=== PATIENT | male | born 1995 | race Caucasian/White ===

== ENCOUNTER 2016-03-10 01:42 | Emergency (ER) | payer MEDICAID, OTHER ==
[~2016-03-10] VITALS: Ht 172.7 cm; Wt 85.9 kg
[2016-03-10 01:46] VITALS: BP 122/68; PULSE 89; RESP 16; O2SAT 97
[2016-03-10] MEDS ORDERED: HYDROcodone-APAP 5-325 mg Tablet PO ONE (02:10)
--- NOTE | 2016-03-10 02:10 | ED.REPORT ---
HPI-Dental/Mouth Prob Date of Service Mar 10, 2016 ED Provider: Dylon Hickman MD 20-year-old male presents to the ED via POV secondary to a cracked tooth resulting in significant dental pain. Patient does not recall a specific injury to the tooth. He states he has obtained an appointment with his dentist in 2 weeks though over the last 2 days he has noticed an increase in pain to the affected tooth. The pain increases with hot or cold beverages, he has not taken any medications for this pain with the exception of aspirin. Patient reports no fevers, headache, nausea/vomiting, neck pain, buccal mucosal swelling or chest pain or palpitations. Nursing Notes Stated Complaint: TOOTH PAIN Chief Complaint: Dental Nursing Notes Reviewed: Yes Allergies: Coded Allergies: No Known Allergies (Verified Allergy, Unknown, 04/30/15) Scheduled Amoxicillin (Amoxicillin) 500 Mg Capsule 500 MG PO TID Amoxicillin/Clav K 500-125 mg (Augmentin 500-125 mg) 1 Each Tablet 1 TABLET PO TID Scheduled PRN Ibuprofen (Ibuprofen) 800 Mg Tablet 800 MG PO TID PRN PRN For Pain Tramadol (Tramadol) 50 Mg Tablet 50 MG PO Q6H PRN PRN For Pain General Time Seen by MD: 01:59 Chief Complaint Tongue pain, Tooth chipped Hx Obtained From: Patient Arrived By: Walk-in Onset Occurred: 2 days ago Symptom Duration: Since onset Location: : Buccal mucosa right: Tooth upper R molar Radiation: : Does not radiate Past Medical History Past Medical History Previous STD, gonorrhea 10/22 Past Surgical History None Smoking History Light Tobacco Smoker Social History Drug Use: Meth Ambulatory Status Independent Review of Systems Basic Review of Systems Cardiovascular: No chest pain Hematologic: No bleeding Allergy / Immune: No allergy Neurologic: NL mental status Ears / Nose / Throat: Reports: Mouth pain, Toothache, Denies: Ear drainage bilateral, Ear ringing bilateral, Earache bilateral, Hearing loss bilateral, Nasal congestion, Nose bleeding, Sinus problem, Sore throat, Throat pain, Throat swelling, Tongue pain, Tongue swelling, Voice change Respiratory: Denies: Shortness of breath, Wheezing GI: Denies: Abdominal pain, Nausea, Vomiting Physical Exam General: Moderate distress, well-developed, well-nourished, appropriately interactive HEENT: Normocephalic, atraumatic. External ears without defect. Pupils equal, round, and reactive to light and accommodation. Anicteric sclerae, moist conjunctivae, and no lid lag. Oropharynx free of erythema and cobble stoning with moist mucosa. Tooth #2 right upper molar missing the distal buccal crown. Some erythema and swelling to area. Neck: Supple with full range of motion. Cardiovascular: Regular rate and rhythm with no murmurs, rubs, or gallops appreciated Pulmonary: Clear to auscultation bilaterally with no crackles, wheezes, or rhonchi. Normal respiratory effort with no use of accessory muscles. Abdomen: Soft, nontender, nondistended. Neurological: Cranial nerves grossly intact. Normal muscle strength, tone, and bulk. Reflexes, coordination, and sensory function within normal limits. No known gait impairment. Psychiatric: Normal mood and affect. Alert and oriented to person, place, and time. Initial Vital Signs Vital Signs (First) Date Time Temp Pulse Resp B/P Pulse Ox O2 Delivery O2 Flow Rate FiO2 03/10/16 01:46 36.6 89 16 122/68 97 Room Air Initial VS: Reviewed Re-Eval/Medical Decision Med Decision/Clinical Course Physical exam showed the distal buccal aspect of patient's #22 (right upper molar) was missing. There was no noticed trismus As this provides an avenue for opportunistic infections patient started on antibiotics amoxicillin 500 3 times a day 10 days. Patient given Toradol in the ED with effect. Patient discharged with prescriptions for tramadol and ibuprofen. Patient had no fevers, neck pain jaw pain,difficulty breathing or heart palpitations. Index for suspicion for bacteremia or cellulitis was low. Pt did not display any signs of trismus. Discharge & Departure Primary Impression: Toothache Disposition: Home Discharge Condition All VS Reviewed: Yes Condition: Improved Referrals: NOPCP (PCP) Attending Statement As attending of record for this patient, conducting an independent history and physical exam, and I agree with the evaluation and documentation per the resident note above, and as amended. ALEX FARMER DO Mar 10, 2016 02:10 Dylon Hickman MD Mar 10, 2016 06:54 Patient given Toradol in the ED with effect. Patient discharged with prescriptions for tramadol and ibuprofen. Patient had no fevers, neck pain jaw pain and difficulty breathing heart palpitations. Index for suspicion for bacteremia or cellulitis was low. Discharge & Departure Primary Impression: Toothache Disposition: Home Discharge Condition All VS Reviewed: Yes Condition: Improved Referrals: NOPCP (PCP) ALEX FARMER DO Mar 10, 2016 02:10
[2016-03-10] MEDS ORDERED: Amoxicillin-Clav 500-125 mg Tablet PO SCH (02:26)
[2016-03-10] MEDS ORDERED: TRAM50TA2 PO ×3 (02:31→02:56)
[2016-03-10] MEDS ORDERED: AMOX-363 PO ×2 (02:43→02:56)
[2016-03-10] MEDS ORDERED: Amoxicillin-Clav 500-125 mg Tablet PO ONE (02:50)
[2016-03-10] MEDS ORDERED: IBUP800T28 PO (02:52)
[2016-03-10] MEDS ORDERED: AMOX500C2 PO (03:27)
[2016-03-10 03:35] VITALS: BP 109/50; PULSE 81; RESP 16; O2SAT 96
== END 2016-03-10 03:34 | disposition home or self-care (01) ==
LOC: SED 01:42
DX: K08.89 Other specified disorders of teeth and supporting structures (principal); F17.200 Nicotine dependence, unspecified, uncomplicated

== ENCOUNTER 2016-05-19 21:15 | Emergency (ER) | payer SELFPAY ==
[~2016-05-19] VITALS: Ht 170.2 cm; Wt 79.5 kg
[~2016-05-19 21:15] MED LIST: AMOX-363 PO; AMOX500C2 PO; IBUP800T28 PO; TRAM50TA2 PO
[2016-05-19 21:33] VITALS: BP 135/73; PULSE 93; RESP 18; O2SAT 99
--- NOTE | 2016-05-19 22:01 | DRSVH ---
PROCEDURE: X-RAY LEFT KNEE, THREE VIEWS ([id number]) INDICATIONS: trauma TECHNIQUE: 3 views of the knee were acquired. COMPARISON: None. FINDINGS: Bones: No fractures or dislocations. No suspicious bony lesions. Soft tissues: No joint effusion. No suspicious soft tissue calcifications. IMPRESSION: No acute radiographic findings. If pain persists, repeat study in 5-7 days is recommende d to exclude occult fracture. Dictated by: Lexi Bernal M.D. on 05/19/2016 at 21:59 Approved by: Lexi Bernal M.D. on 05/19/2016 at 22:00
--- NOTE | 2016-05-19 23:34 | ED.REPORT ---
HPI-Extremity Problem Lower Date of Service May 19, 2016 ED Provider: Jim Zepeda MD Patient is a 20 year old male who presents to the ED with a left knee injury that occurred while snowboarding this afternoon. The patient states that [place]. He went over a mound and states that he nosed dived down, with his legs moving a direction that they should not have. He heard a pop from his knee and the inner portion of his knee is now tender. Patient injured this knee during high school football, but states that it was not nearly this painful. Patient does not currently have a PCP, but is in the process of obtaining a new PCP through his insurance. Patient denies any other injuries. Nursing Notes Stated Complaint: LEFT KNEE INJURY Chief Complaint: Extremity Trauma Nursing Notes Reviewed: Yes Allergies: Coded Allergies: No Known Allergies (Verified Allergy, Unknown, 05/19/16) Scheduled Amoxicillin (Amoxicillin) 500 Mg Capsule 500 MG PO TID Amoxicillin/Clav K 500-125 mg (Augmentin 500-125 mg) 1 Each Tablet 1 TABLET PO TID Scheduled PRN Hydrocodone-Acetaminophen 5-325 mg (Hydrocodone-Acetaminophen 5-325 mg) 1 Each Tablet 1-2 TABLET PO QID PRN PRN For Pain Ibuprofen (Ibuprofen) 800 Mg Tablet 800 MG PO TID PRN PRN For Pain Tramadol (Tramadol) 50 Mg Tablet 50 MG PO Q6H PRN PRN For Pain General Time Seen by MD: 23:33 Chief Complaint Knee injury left Hx Obtained From: Patient Arrived By: Walk-in Onset Occurred: 5 - 8 hours ago Symptom Duration: Since onset Caused by: Accidental Location: : Knee left Severity: Current: Moderate Severity: Maximum: Moderate Recent Healthcare: No recent doctor visit, No recent hospitalization Similar Sx Previous: Yes Past Medical History Past Medical History Previous STD, gonorrhea 10/22 Past Surgical History None Smoking History Light Tobacco Smoker Social History Alcohol Use: "Social" Drug Use: Meth, THC Other Social History: Good social support, Local resident Ambulatory Status Independent Review of Systems Musculoskeletal: Reports: Extremity pain, Joint pain Neurologic: Denies: Change LOC, Headache Complete sys rev & neg: except as marked. Physical Exam Initial Vital Signs Vital Signs (First) Date Time Temp Pulse Resp B/P Pulse Ox O2 Delivery O2 Flow Rate FiO2 05/19/16 21:33 36.4 93 18 135/73 99 Room Air Initial VS: Reviewed, Vital signs normal Head / Eyes: Atraumatic, Normocephalic, PERRL ENT: Conjunctiva normal, No scleral icterus Neck: Supple, Full range of motion Upper Extremities: Vascular intact, Neuro intact, No swelling, No tenderness Skin: Warm, Dry, No cyanosis Neurologic: Alert, Oriented, Nonfocal Psychiatric: Mood/affect normal, Behavior normal, Normal thought content Lower Extremity / Pelvis / MS: Neurologic intact, Vascular intact Left Knee: Positive: Medial collat lig tender, Negative: Joint effusion present partial laxity of the left knee Ankle / Foot: Neurologic intact, Vascular intact General/Constitutional: Awake, Alert, No acute distress Respiratory / Chest: No respiratory distress, No stridor Cardiovascular: Heart rate NL, Cap refill not delayed, Peripheral circulation NL Interpretation & Diagnostics X-Ray Interpretation Xray Interpretation: IMPRESSION: No acute radiographic findings. If pain persists, repeat study in 5-7 days is recommended to exclude occult fracture. Dictated by: Lexi Bernal M.D. on 05/19/2016 at 21:59 Approved by: Lexi Bernal M.D. on 05/19/2016 at 22:00 X-Ray Ordered: Knee left Interpretation / Wet Read by: Interpret - Radiologist Re-Eval/Medical Decision Med Decision/Clinical Course 20-year-old with left MCL injury. Placed in a knee immobilizer and fitted with crutches. Discharged home with pain medication to follow up with Dr. Myers for further evaluation. There may be some laxity but it is difficult to test secondary to pain. Source of Hx: Old records Re-Evaluation/Progress : Time of Eval: 23:45 Patient Status: Condition improved Re-Evaluation/Progress Note: X-ray was negative. He will likely need an MRI of his knee in the future. Patient understands and agrees with the plan to be discharged home. Discharge instructions and follow-up discussed. All questions were addressed. Return to the ED warnings given. Counseled Regarding: Diagnosis, Need for follow-up, When/why to return to ED Discharge & Departure Impression: Primary Impression: Sprain of medial collateral ligament of left knee Disposition: Home Discharge Condition All VS Reviewed: Yes Condition: Stable Patient Instructions: Knee Sprain (ED) Additional Instructions: Hydrocodone/acetaminophen 5/325, one or 2 tablets 4 times a day as needed for pain, #10 dispensed and #10 prescription written. Ibuprofen 400-600 mg 4 times a day as needed, to be purchased over the counter. It is okay to use these medications together. Wear the knee immobilizer for comfort, probably even in bed. Recommend no work for the week. Follow-up with Dr. Myers for further evaluation, possibly to include an MRI. Referrals: Devaughn Myers MD Attestation Portions of this note were transcribed by Soheila Moeller. I, Dr. Zepeda personally performed the history, physical exam and medical decision-making; I reviewed and confirmed the accuracy of the information in the transcribed note. Signed by: Gadiel Silva, 05/20/2016 0127 copies to: Devaughn Myers MD, Howard L MD May 19, 2016 23:34 Soheila Moeller May 19, 2016 23:41
[2016-05-19] MEDS ORDERED: _HYDROcodone/APAP 5-325 mg Tablet PO PRN (23:45)
[2016-05-20] MEDS ORDERED: HYDR-4003 PO (00:43)
== END 2016-05-20 01:03 | disposition home or self-care (01) ==
LOC: SED 21:15
DX: S83.412A Sprain of medial collateral ligament of left knee, initial encounter (principal); X50.0XXA Overexertion from strenuous movement or load, initial encounter; Y93.23 Activity, snow (alpine) (downhill) skiing, snowboarding, sledding, tobogganing and snow tubing; Y92.828 Other wilderness area as the place of occurrence of the external cause; Y99.8 Other external cause status; Z79.899 Other long term (current) drug therapy; F17.210 Nicotine dependence, cigarettes, uncomplicated

== ENCOUNTER 2016-06-26 16:23 | Emergency (ER) | payer OTHER ==
[~2016-06-26] VITALS: Ht 170.2 cm; Wt 79.5 kg
[~2016-06-26 16:23] MED LIST changes: +HYDR-4003 PO
[2016-06-26 16:31] VITALS: BP 132/77; PULSE 82; RESP 16; O2SAT 98
--- NOTE | 2016-06-26 16:42 | ED.REPORT ---
HPI-Extremity Problem Upper Date of Service Jun 26, 2016 ED Provider: Sarath Dennison MD Patient is a 20 year old male who presents to the ED with a laceration to his left 4th finger which he sustained at work just prior to arrival. 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 He cut his finger, which gushed significant blood. He was able to stop the bleeding with pressure. The patient states that his fingertip initially felt numb as has resolved and that he has difficulty bending his finger secondary to pain. His last Tetanus shot was 1-2 years ago. Patient denies sustaining any other injures. Nursing Notes Stated Complaint: RIGHT 4TH FINGER INJURY AT WORK Chief Complaint: Extremity Trauma Nursing Notes Reviewed: Yes Allergies: Coded Allergies: No Known Allergies (Verified Allergy, Unknown, 05/19/16) Scheduled Amoxicillin (Amoxicillin) 500 Mg Capsule 500 MG PO TID Amoxicillin/Clav K 500-125 mg (Augmentin 500-125 mg) 1 Each Tablet 1 TABLET PO TID Scheduled PRN Hydrocodone-Acetaminophen 5-325 mg (Hydrocodone-Acetaminophen 5-325 mg) 1 Each Tablet 1-2 TABLET PO QID PRN PRN For Pain Ibuprofen (Ibuprofen) 800 Mg Tablet 800 MG PO TID PRN PRN For Pain Tramadol (Tramadol) 50 Mg Tablet 50 MG PO Q6H PRN PRN For Pain General Time Seen by MD: 16:39 Chief Complaint Finger injury left 4 Hx Obtained From: Patient Arrived By: Walk-in Onset Occurred: Just prior to arrival Symptom Duration: Since onset Location: : Finger left 4 Quality: Painful Severity: Current: Moderate Severity: Maximum: Moderate Immunizations: Tetanus up to date Recent Healthcare: No recent doctor visit, No recent hospitalization Similar Sx Previous: Yes Past Medical History Past Medical History Previous STD, gonorrhea 10/22 Past Surgical History None Smoking History Light Tobacco Smoker Social History Alcohol Use: "Social" Drug Use: Meth, THC Other Social History: Good social support, Local resident Ambulatory Status Independent Review of Systems Musculoskeletal: Reports: Extremity pain, Denies: Extremity swelling Neurologic: Reports: Numbness, Weakness (difficulty bending finger) Complete sys rev & neg: except as marked. Hematologic: Reports Bleeding, Denies Bruising Physical Exam Initial Vital Signs Vital Signs (First) Date Time Temp Pulse Resp B/P Pulse Ox O2 Delivery O2 Flow Rate FiO2 06/26/16 16:31 36.2 82 16 132/77 98 Room Air Initial VS: Reviewed Head / Eyes: Atraumatic, Normocephalic, PERRL ENT: Conjunctiva normal, No scleral icterus Skin: Warm, Dry, No cyanosis Neurologic: Alert, Oriented, Nonfocal Psychiatric: Mood/affect normal, Behavior normal, Normal thought content General/Constitutional: Awake, Alert, No acute distress Neck: Supple, Full range of motion Respiratory / Chest: No respiratory distress Cardiovascular: Heart rate NL, Cap refill not delayed Upper Extremity / MS: Neurologic intact, Vascular intact Wrist / Hand: No deformity, Neurologic intact, Vascular intact Laceration to the left 4th finger, about the lateral aspect. 2cm long. Cut extends down to the subcutaneous issue. No ligamentous, vascular, or nerve involvement. No evidence of foreign body. Procedures Laceration Management Laceration Management: Closure with Steri-Strips and skin glue. Time: 18:15 Procedure Performed by: ED physician Consent / Setup / Site Prep: Consent from patient, Time-out performed, Hand hygiene observed, Stand sterile technique Location of Wound: left fourth finger Wound Length: 2 cm Local Anesthesia: Lidocaine 1% Digit Involved: Ring finger left Wound Preparation: Betadine, Normal saline Debridement: None Irrigation: Copious Foreign Body Explore / Removal: Explored for foreign body Repair Skin: Dermabond Closure Layers: 1 Post-Procedure / Complications: Dressing applied, No complications, Condition improved, Tolerated procedure well, Patient stable Re-Eval/Medical Decision Med Decision/Clinical Course Patient is a 20 year old male who presents to the ED with a laceration to his left 4th finger which he sustained at work just prior to arrival. 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 He cut his finger, which gushed significant blood. He was able to stop the bleeding with pressure. The patient states that his fingertip initially felt numb as has resolved and that he has difficulty bending his finger secondary to pain. His last Tetanus shot was 1-2 years ago. Patient denies sustaining any other injures. Here in the emergency department the patient is afebrile with stable vital signs and in no apparent distress. Wound was anesthetized using 1% lidocaine and was copiously irrigated and explored. There was no evidence of neurovascular or ligamentous injury. He had good capillary refill and sensation to the fingertip with full range of motion. The wound is relatively superficial and was closed using Steri-Strips as documented above. The patient was placed in a finger splint for comfort and will follow-up closely with his primary care physician. His tetanus is up-to-date. Prior to discharge follow-up and return precautions were reviewed in detail with the patient who verbalized understanding and agreement with the plan. The patient was discharged in stable condition. Source of Hx: Old records Re-Evaluation/Progress : Time of Eval: 18:40 Patient Status: Condition improved Re-Evaluation/Progress Note: Laceration repaired. Finger will be splinted. Patient understands and agrees with the plan to be discharged home. Discharge instructions and follow-up discussed. All questions were addressed. Return to the ED warnings given. Counseled Regarding: Diagnosis, Need for follow-up, When/why to return to ED Discharge & Departure Impression: Primary Impression: Laceration of finger of left hand Encounter type: initial encounter Qualified Code: S61.219A - Laceration without foreign body of unspecified finger without damage to nail, initial encounter Disposition: Home Discharge Condition All VS Reviewed: Yes Condition: Stable Patient Instructions: Finger Laceration (ED) Additional Instructions: Thank you for seeking care at the emergency room. You sustained a laceration to your left 4th finger, which was closed with skin glue. Do not get your finger wet for the next 24 hours. Our primary goal today in the ED was to evaluate you for any life-threatening conditions. Your evaluation was reassuring. You should follow-up with your primary doctor in the next week. You should return to the ED immediately if you develop redness of your finger, increased pain, numbness, weakness, fever, or any other concerning signs or symptoms. Thank you for letting us partake in your care today. Referrals: [facility] Scribe Attestation Portions of this note were transcribed by Soheila Moeller. I, Dr. Dennison personally performed the history, physical exam and medical decision-making; I reviewed and confirmed the accuracy of the information in the transcribed note. Signed by: Gadiel Silva, 06/26/2016 1843 Sarath Dennison MD Jun 26, 2016 16:42 Soheila Moeller Jun 26, 2016 17:51
[2016-06-26] MEDS ORDERED: Lidocaine 1% 50 mL Inj NERVEBLOCK ONE (17:50)
[2016-06-26 18:48] VITALS: BP 140/71; PULSE 75; O2SAT 97
== END 2016-06-26 18:49 | disposition home or self-care (01) ==
LOC: SED 16:23
DX: S61.215A Laceration without foreign body of left ring finger without damage to nail, initial encounter (principal); W24.0XXA Contact with lifting devices, not elsewhere classified, initial encounter; Y93.89 Activity, other specified; Y92.69 Other specified industrial and construction area as the place of occurrence of the external cause; Y99.0 Civilian activity done for income or pay